=== PATIENT | female | born 1960 | race Caucasian/White ===

== ENCOUNTER 2018-09-15 22:45 | Inpatient (IN) ==
[2018-09-16] MEDS ORDERED: Artificial Tears SOLN 15 ML BOTTLE BOTH EYES PRN (01:52)
[2018-09-16] MEDS ORDERED: Naloxone 0.4 MG/ML INJ IVP PRN (01:52)
[2018-09-16] MEDS ORDERED: Vancomycin (wt based) 1,000 MG VIAL IVPB SCH (02:00)
[2018-09-16] MEDS ORDERED: 0.9 % Sodium Chloride 1,000 ML IVC SCH (02:00)
[2018-09-16] MEDS ORDERED: *HR* Heparin 5,000 UNIT/ML VIAL IVP PRN ×2 (02:04)
[2018-09-16] MEDS ORDERED: Heparin 25,000 UNIT/250 ML D5W 25,000 UNIT/250 ML IV.SOLN IVC SCH (02:15)
[2018-09-16 02:45] LABS: Basophils % 0.1 %; Hematocrit 35.4 % (35.3-44.9); Immature Granulocytes % 0.3 % (0-4); Lymphocytes # 0.6 K/mcL (0.6-4.6); Lymphocytes % 4.9 %; Mean Corpuscular HGB Conc 31.1 g/dL (31.6-35.5); Mean Corpuscular Hemoglobin 31.2 pg (28.0-33.3); Mean Corpuscular Volume 100.3 fL (83.0-100.0); Mean Platelet Volume 10.9 fL (9.4-12.4); Monocytes # 0.1 K/mcL (0.0-1.3); Monocytes % 1.1 %; Neutrophils # 10.9 K/mcL (1.6-8.9); Platelet Count 197 K/mcL (140-400); Red Blood Count 3.53 M/mcL (3.82-4.97); Red Cell Distribution Width 14.3 % (11.5-14.5); Segmented Neutrophils % 93.6 %
[2018-09-16 03:06] LABS: Alanine Aminotransferase 21 Units/L (7-52); Albumin 3.2 g/dL (3.5-5.7); Albumin/Globulin Ratio 1.1 (1.1-2.2); Alkaline Phosphatase 60 Units/L (34-104); Aspartate Amino Transferase 21 Units/L (13-39); BUN/Creatinine Ratio 17 (6-26); Bilirubin,Direct 0.4 mg/dL (0.0-0.2); Bilirubin,Indirect 0.9 mg/dL (0.0-1.2); Bilirubin,Total 1.3 mg/dL (0.3-1.0); Blood Urea Nitrogen 14 mg/dL (8-23); Calcium 7.8 mg/dL (8.6-10.3); Carbon Dioxide 18 mEq/L (23-29); Chloride 109 mEq/L (98-107); Globulin 2.9 g/dL (2.4-3.5); Glucose 198 mg/dL (70-105); Magnesium 1.9 mg/dL (1.6-2.6); Osmolality,Calculated 292 (280-300); Potassium 3.4 mEq/L (3.5-5.1); Sodium 138 mEq/L (136-145); Total Protein 6.1 g/dL (6.4-8.9); eGFR For Non-African Americans > 60 (> 60)
--- NOTE | 2018-09-16 03:29 | Internal Med History&Physical ---
Date of Encounter: 09/16/18 Time of Encounter: 01:20 Internal Medicine - H&P: HPI Chief complaint: difficulty breahting Admitted From: Hospital to Hospital Transfer Plans for Post Hospital Care: Home History of present illness: Ms. Navarro is a 58 year old female who presents in transfer from [facility]. She presented there earlier this evening with complaints of shortness of breath, ankle swelling, and chest tightness. Symptoms have been present off and on for roughly 2 months. However, her symptoms acutely worsened today. She initially was not in any significant respiratory distress. However, as her ER course continued, she became acutely dyspneic, unstable, and was exhibiting signs of impending respiratory failure/arrest. She was therefore intubated emergently in the ER and was mechanically ventilated. Given the above nature and onset of her respiratory distress, a CT angiogram of the chest was performed which revealed no acute pulmonary embolus. She did have some interstitial edema, however. At that point, a transfer request was made to send patient to our ICU for ongoing care. Upon arrival to the ICU, I saw patient at the bedside. She is sedated and mechanically ventilated. She is oxygenating well and her vital signs appear to be stable at this time. There are no family members present. All history is obtained from limited [facility] records and third-alliance party reports from [facility] ER staff. No further history could be obtained. Past Med Surg Social Fam HX - Past Medical History Source: other (limited [facility] records) Medical history: COPD, hypertension Additional medical history: NO FAMILY AT BEDSIDE, pt intubated and sedated upon arrival - Past Surgical History Surgical History: no surgical history - Social History Smoking Status: Former smoker Alcohol use: none Drug use: marijuana - Family History Mother History Unknown: Yes Father History Unknown: Yes Internal Medicine - H&P: Meds Allergy/AdvReac Type Severity Reaction Status Date / Time No Known Allergies Allergy Verified 09/16/18 03:37 ROS unobtainable: due to endotracheal tube - Constitutional Vitals: Temp Pulse Resp BP Pulse Ox 97.9 F 83 16 112/81 100 09/16/18 02:00 09/16/18 03:00 09/16/18 03:00 09/16/18 03:00 09/16/18 03:00 Exam: intubated, sedated, responds to painful/loud stimuli - Head Head exam: Present: atraumatic, normal inspection - Eye Eye exam: Present: PERRL. Absent: scleral icterus - ENT ENT exam: Present: mucous membranes dry, normal exam, normal oropharynx Additional comments: ETT/OG in place - Neck Neck exam general surgery: Present: full ROM, supple, trachea midline. Absent: lymphadenopathy, tenderness, nuchal rigidity, thyromegaly - Respiratory Respiratory exam: Present: rales (faint), rhonchi, wheezes (rare, scatterd). Absent: chest wall tenderness, tachypnea - Cardiovascular Cardiovascular exam: Present: distant heart sounds, RRR, +S1, +S2. Absent: diastolic murmur, systolic murmur Additional comments: + ectopic beats noted on occasion - GI/Abdominal GI/Abdominal exam: Present: normal bowel sounds, soft. Absent: hepatomegaly, mass, splenomegaly, tenderness - Extremities Exam Extremities exam: Present: full ROM, radial pulses palpable and symmetrical. Absent: calf tenderness, joint swelling, pedal edema, tenderness, warm (cool) - Back Exam Back exam: Absent: CVA tenderness (L), CVA tenderness (R) - Neurological Exam Additional comments: sedated, intubated, + purposeful movements with painful stimuli - Psychiatric Additional comments: unable to assess due to sedation - Skin Skin exam: Present: dry, intact, warm Internal Med - H&P Results - Labs CBC & Chem 7: 09/16/18 02:35 09/16/18 02:35 Labs: Short CBC 09/16/18 Range/Units 02:35 WBC 11.6 H (4.3-11.1) K/mcL Hgb 11.0 L (11.5-15.4) g/dL Hct 35.4 (35.3-44.9) % Plt Count 197 (140-400) K/mcL Neutrophils # 10.9 H (1.6-8.9) K/mcL BMP 09/16/18 02:35 Sodium 138 Potassium 3.4 L Chloride 109 H Carbon Dioxide 18 L BUN 14 Creatinine 0.84 Glucose 198 H Calcium 7.8 L Cardiac Enzymes 09/16/18 Range/Units 02:35 Troponin I 0.04 H* (< 0.04) ng/mL Liver Function 09/16/18 Range/Units 02:35 Total Bilirubin 1.3 H (0.3-1.0) mg/dL Direct Bilirubin 0.4 H (0.0-0.2) mg/dL AST 21 (13-39) Units/L ALT 21 (7-52) Units/L Alkaline Phosphatase 60 (34-104) Units/L Albumin 3.2 L (3.5-5.7) g/dL I reviewed the labs from [facility] and include the following: WBC 9.3 Hemoglobin 12.7 Hematocrit 39.1 Platelets 269 Sodium 143 Potassium 4.5 Chloride 106 Carbon dioxide 25 BUN 17 Glucose 110 Creatinine 1.15 Troponin 0.09 Initial lactate 3.3, follow-up lactate after fluid resuscitation was 1.9 - EKG Data -: EKG Interpreted by Myself - EKG Data Prior EKG available for review: no EKG comments: 09/16/18 04:05 [facility] EKG -- poor quality; baseline artifact; appears to show some lateral flipped T waves and ST changes with subtle ischemia - Impressions ITS Impressions Chest X-Ray 09/16/18 01:52 IMPRESSION: Endotracheal tube is been retracted and tip now lies 2.9 cm from the jerry. Enteric tube is been placed and can be seen to extend into the stomach, distal extent not included the field of view but with side-port visualized and present likely in the mid to proximal body of the stomach. No change in the heart or lungs with persistent bilateral pleural effusions along with some patchy airspace opacities which may relate to atelectasis or infiltrates. There also a persistent pulmonary vascular congestion and likely interstitial edema. D/ / Sukhjinder German MD / Sukhjinder German MD Interpreting Provider: Sukhjinder German MD - Diagnostic Studies Chest x-ray Status: image reviewed by me (ETT/OG in place; bilateral infiltrates) - Assessment and Plan (1) Acute hypoxemic respiratory failure Current Visit: Yes Status: Acute Assessment and plan: 1. Patient intubated at [facility]. 2. Will continue mechanical ventilation, wean oxygen as able, and check ABG. 3. Will consult Pulmonary for ICU management. 4. Antibiotics, steroids, and aerosols as detailed below. (2) Pneumonia Current Visit: Yes Status: Acute Assessment and plan: 1. Blood and sputum cultures ordered. 2. Will order Vancomycin, Zosyn, and Levaquin. 3. Will order systemic steroids for COPD as well. 4. Ventilatory support as above. 5. Will order Influenza testing. Qualifiers: Pneumonia type: due to unspecified organism Laterality: bilateral Lung location: lower lobe of lung Qualified Code(s): J18.1 - Lobar pneumonia, u nspecified organism (3) Sepsis Current Visit: Yes Status: Acute Assessment and plan: 1. Patient fluid resuscitated at [facility]. 2. Cultures as above. 3. Will trend lactate levels. 4. MIV and antibiotics as above. 5. Monitor hemodynamics and add pressors if necessary. Qualifiers: Sepsis type: sepsis due to unspecified organism Qualified Code(s): A41.9 - Sepsis, unspecified organism (4) Elevated troponin Current Visit: Yes Status: Acute Assessment and plan: 1. Will trend troponins and EKG's. 2. Will order ECHO and consult cardiology. 3. Will order daily ASA and continue ACS heparin gtt for now as initially started at [facility]. (5) DVT prophylaxis Current Visit: Yes Status: Acute Assessment and plan: 1. Heparin gtt as above. - Time Spent With Patient Total 53 minutes critical care time spent assessing patient, reviewing pertinent [facility] records and labs, and coordinating a treatment plan for patient.
[2018-09-16 04:30] LABS: INR 1.2; Prothrombin Time 13.5 Seconds (9.4-12.1)
[2018-09-16 04:35] LABS: ABG Base Excess -4 mEq/L (-2 to 3); ABG HCO3 22 mEq/L (21-27); ABG Oxygen Saturation 100 % (95-98); ABG PCO2 40 mmHg (35-45); ABG PH 7.34 pH Units (7.32-7.45); ABG PO2 206 mmHg (85-104); ABG TCO2 23 mEq/L (20-26); Blood Gas Modality ASSIST CONTROL; Blood Gas PEEP 5 cm H2O; Blood Gas Respiration Rate 16; Blood Gas VT 400 cc
[2018-09-16] MEDS: Artificial Tears SOLN 15 ML BOTTLE BOTH EYES SCH ×6 (04:57→23:24)
[2018-09-16] MEDS: FentaNYL (PF) 1,000 MCG in 0.9 % Sodium Chloride 80 ML IVC SCH ×3 (04:58→23:07)
[2018-09-16] MEDS: Pantoprazole 40 MG VIAL IVP SCH (05:02)
[2018-09-16 06:56] LABS: Influenza A PCR Negative (Negative); Influenza B PCR Negative (Negative); Resp. Syncytial Virus PCR Negative (Negative)
[2018-09-16] MEDS: methylPREDNISolone 125 MG/2 ML VIAL IVP SCH ×3 (09:16→23:16)
[2018-09-16] MEDS: Chlorhexidine Rinse 15 ML MOUTHWASH MM SCH ×2 (09:16→21:13)
[2018-09-16] MEDS: Piperacillin/Tazobactam 3.375 GM in 0.9 % Sodium Chloride Mini Bag 100 ML IVPB SCH ×3 (09:17→23:16)
[2018-09-16] MEDS: Levofloxacin 750 MG/150 ML 750 MG/150 ML BAG IVPB SCH (09:17)
[2018-09-16] MEDS: Aspirin 81 MG TAB.CHEW PO SCH (09:17)
[2018-09-16] MEDS: Budesonide/Formoterol 160/4.5 1 PUFF INH IH SCH ×2 (09:35→20:12)
[2018-09-16 10:42] LABS: Adenovirus Not Detected (Not Detect); Bordetella Pertussis Not Detected (Not Detect); Chlamydophila pneumoniae Not Detected (Not Detect); Coronavirus 229E Not Detected (Not Detect); Coronavirus HKU1 Not Detected (Not Detect); Coronavirus NL63 Not Detected (Not Detect); Coronavirus OC43 Not Detected (Not Detect); Human Metapneumovirus Not Detected (Not Detect); Human Rhinovirus/Enterovirus Not Detected (Not Detect); Influenza A Subtype 2009 H1 Not Detected (Not Detect); Influenza A Untypeable Not Detected (Not Detect); Influenza B Not Detected (Not Detect); Mycoplasma pneumoniae Not Detected (Not Detect); Parainfluenza Virus 1 Not Detected (Not Detect); Parainfluenza Virus 2 Not Detected (Not Detect); Parainfluenza Virus 3 Not Detected (Not Detect); Parainfluenza Virus 4 Not Detected (Not Detect); Respiratory Syncytial Virus Not Detected (Not Detect)
--- NOTE | 2018-09-16 10:48 | Pulmonology Consult Note ---
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 Patient presenting with a pedal edema slowly progressive shortness of breath over 2 months with current echocardiographic finding with pericardial effusion and systolic and diastolic heart failure will be due to underlying long-standing untreated hypertensive heart disease since she is a former smoker COPD is also complicating the picture. To continue mechanical ventilation with lung protective strategy patient has adequate gas exchange and ventilation (2) Cardiomyopathy Current Visit: Yes Status: Acute Patient newly diagnosed systolic and diastolic heart failure unsure the etiology of her cardiomyopathy can be ischemic versus nonischemic patient has this Pericardial effusion most likely due to this cardiomyopathy patient need to think about other polyserositis causes. Appreciate cardiology consult possible ischemic evaluation at some point of her hospital course. Qualifiers: Cardiomyopathy type: unspecified Qualified Code(s): I42.9 - Cardiomyopathy, unspecified (3) Pericardial effusion without cardiac tamponade Current Visit: Yes Status: Acute Patient is pericardial effusion spoke with the correctional treatment specialist who read the echocardiogram no evidence of cardiac And If She Gets into Hemodynamic Instability Will Need to Consult Cardiothoracic Surgery for Possible Pericardiocentesis. (4) Pneumonia Current Visit: Yes Status: Acute Patient chest x-ray imaging showing possible bilateral bibasilar pneumonia will cover with broad-spectrum antibiotics and will quickly de-escalate according to the clinical response. Qualifiers: Pneumonia type: due to unspecified organism Laterality: bilateral Lung location: lower lobe of lung Qualified Code(s): J18.1 - Lobar pneumonia, unspecified organism (5) COPD (chronic obstructive pulmonary disease) Current Visit: Yes Status: Acute To continue schedule bronchodilators. Qualifiers: COPD type: unspecified COPD Qualified Code(s): J44.9 - Chronic obstructive pulmonary disease, unspecified History of Present Illness Consult date: 09/16/18 Requesting physician: Ian Oliver Reason for consult: other (acute respiratory failure ) Chief complaint: Shortness of breadt History of present illness: 58-year-old female with not much past medical history according to records reviewed the family was not at bedside patient looks commands she did not with chronic smoking history patient might have some underlying COPD according to records from [facility] patient was complaining of progressive shortness of breath which was going for few months has pedal edema developed worsening acute hypoxic respiratory failure patient was intubated and mechanically ventilated at [facility] ER and patient was transferred to [facility] for further management. All the history was taken from the medical records as there is no family. Patient was agitated before I went into the room the nursing staff has to sedate her. Past Med Surg Social Fam HX - Past Medical History Medical history: COPD, hypertension Additional medical history: NO FAMILY AT BEDSIDE, pt intubated and sedated upon arrival - Past Surgical History Surgical History: no surgical history - Social History Smoking Status: Former smoker Alcohol use: none Drug use: marijuana - Family History Mother History Unknown: Yes Father History Unknown: Yes Medications and Allergies Albuterol Sulfate [Ventolin Hfa] 2 puff IH Q6H PRN 09/16/18 [History] Fluticasone/Salmeterol [Airduo Respiclick 113-14 Mcg] 1 puff IH BID 09/16/18 [History] Fluticasone/Vilanterol [Breo Ellipta 100-25 Mcg INH] 1 puff IH DAILY 09/16/18 [History] Allergy/AdvReac Type Severity Reaction Status Date / Time No Known Allergies Allergy Verified 09/16/18 11:25 ROS unobtainable: due to endotracheal tube All Systems: The remainder of the systems were reviewed and are negative Physical Examination Vital Signs: Vital Signs, Last 4 Hours Temp Pulse Resp BP Pulse Ox 09/16/18 10:00 66 16 101/79 99 09/16/18 09:38 24 100/82 99 09/16/18 09:32 86 09/16/18 09:00 65 16 104/83 100 09/16/18 08:00 97.8 F 68 16 108/75 99 09/16/18 07:20 16 114/87 100 09/16/18 07:00 67 16 114/87 99 Auscultation: bilateral: diminished breath sounds Cardiovascular: irregular rhythm Gait: other (unable to assess ) unable to assess due to mental status other (unable to assess) Ventilator Settings Ventilator Settings: Ventilator Settings, Last 8 Hours Ventilator Tidal Volume 400 Setting Ventilator Tidal Volume 400 Setting Ventilator Tidal Volume 400 Setting Ventilator Tidal Volume 400 Setting Ventilator Tidal Volume 400 Setting Ventilator Tidal Volume 400 Setting Ventilator Tidal Volume 414 Setting Ventilator Tidal Volume 400 Setting Ventilator Tidal Volume 414 Setting Ventilator Tidal Volume 400 Setting Ventilator Tidal Volume 414 Setting Ventilator Tidal Volume 400 Setting Ventilator Tidal Volume 400 Setting Ventilator Respiratory Rate 16 Setting Ventilator Respiratory Rate 16 Setting Ventilator Respiratory Rate 16 Setting Ventilator Respiratory Rate 16 Setting Ventilator Respiratory Rate 16 Setting Ventilator Respiratory Rate 16 Setting Ventilator Respiratory Rate 16 Setting Ventilator Respiratory Rate 16 Setting Ventilator Respiratory Rate 16 Setting Ventilator Respiratory Rate 16 Setting Ventilator Respiratory Rate 16 Setting Ventilator Respiratory Rate 16 Setting Ventilator Respiratory Rate 16 Setting Actual Respiratory Rate 16 Actual Respiratory Rate 16 Actual Respiratory Rate 16 Actual Respiratory Rate 16 Actual Respiratory Rate 16 Actual Respiratory Rate 16 Actual Respiratory Rate 16 Actual Respiratory Rate 16 Actual Respiratory Rate 16 Actual Respiratory Rate 18 Actual Respiratory Rate 16 Actual Respiratory Rate 16 Positive End Expiratory 5 Pressure Positive End Expiratory 5 Pressure Positive End Expiratory 5 Pressure Positive End Expiratory 5 Pressure Positive End Expiratory 5 Pressure Positive End Expiratory 5 Pressure Positive End Expiratory 5 Pressure Positive End Expiratory 5 Pressure Positive End Expiratory 5 Pressure Positive End Expiratory 5 Pressure Positive End Expiratory 5 Pressure Positive End Expiratory 5 Pressure Positive End Expiratory 5 Pressure Peak Inspiratory Airway 18 Pressure Peak Inspiratory Airway 18 Pressure Peak Inspiratory Airway 20 Pressure Peak Inspiratory Airway 20 Pressure Peak Inspiratory Airway 22 Pressure Peak Inspiratory Airway 22 Pressure Peak Inspiratory Airway 22 Pressure Peak Inspiratory Airway 22 Pressure Peak Inspiratory Airway 23 Pressure Peak Inspiratory Airway 25 Pressure Peak Inspiratory Airway 22 Pressure Peak Inspiratory Airway 22 Pressure Results - Laboratory Findings CBC and BMP: 09/16/18 02:35 09/16/18 02:35 ABG ABG pH 7.34 pH Units (7.32-7.45) 09/16/18 04:28 ABG pCO2 40 mmHg (35-45) 09/16/18 04:28 ABG pO2 206 mmHg (85-104) H 09/16/18 04:28 ABG O2 Saturation 100 % (95-98) H 09/16/18 04:28 PT/INR, D-dimer PT 13.5 Seconds (9.4-12.1) H 09/16/18 02:29 Abnormal lab findings: Abnormal lab results WBC 11.6 K/mcL (4.3-11.1) H 09/16/18 02:35 RBC 3.53 M/mcL (3.82-4.97) L 09/16/18 02:35 Hgb 11.0 g/dL (11.5-15.4) L 09/16/18 02:35 MCV 100.3 fL (83.0-100.0) H 09/16/18 02:35 MCHC 31.1 g/dL (31.6-35.5) L 09/16/18 02:35 Neutrophils # 10.9 K/mcL (1.6-8.9) H 09/16/18 02:35 PT 13.5 Seconds (9.4-12.1) H 09/16/18 02:29 Heparin Anti-Xa, Unfract 0.03 IU/mL (0.30-0.70) L 09/16/18 05:25 ABG pO2 206 mmHg (85-104) H 09/16/18 04:28 ABG O2 Saturation 100 % (95-98) H 09/16/18 04:28 ABG Base Excess -4 mEq/L (-2 to 3) L 09/16/18 04:28 Potassium 3.4 mEq/L (3.5-5.1) L 09/16/18 02:35 Chloride 109 mEq/L (98-107) H 09/16/18 02:35 Carbon Dioxide 18 mEq/L (23-29) L 09/16/18 02:35 Glucose 198 mg/dL (70-105) H 09/16/18 02:35 POC Glucose 160 mg/dL (70-99) H 09/16/18 05:02 Calcium 7.8 mg/dL (8.6-10.3) L 09/16/18 02:35 Total Bilirubin 1.3 mg/dL (0.3-1.0) H 09/16/18 02:35 Direct Bilirubin 0.4 mg/dL (0.0-0.2) H 09/16/18 02:35 Troponin I 0.05 ng/mL (< 0.04) H* 09/16/18 05:25 Serum Total Protein 6.1 g/dL (6.4-8.9) L 09/16/18 02:35 Albumin 3.2 g/dL (3.5-5.7) L 09/16/18 02:35 - Clinical Findings Intake & Output: Intake & Output 09/15/18 09/16/18 09/16/18 23:59 07:59 15:59 Intake Total 269.6 / 269.6 505.4 / 505.4 Output Total 895 / 895 Balance -625.4 / -625.4 505.4 / 505.4 Weight 49.7 kg Consult Discharge Plan - Plan Referrals: NONE,PCP [Primary Care Provider] - Critical Care Time Critical Care Time: Yes Total Critical Care Time: 45 Attestation: I spent 45 minutes of Critical Care time with this patient. It involved dec ision making of high complexity to assess, manipulate, and support vital organ system failure and/or to prevent further life threatening deterioration of the patient's condition. The time involved in the performance of separately reportable procedures was not counted toward critical care time.
[2018-09-16] MEDS: Dexmedetomidine HCl 400 MCG/100 ML MLS IVC SCH ×2 (15:22→23:23)
[2018-09-16] MEDS ORDERED: *HR* Midazolam HCl 2 MG/2 ML VIAL ONE (16:09)
[2018-09-16] MEDS: *HR* Midazolam HCl 2 MG/2 ML VIAL IVP PRN ×2 (16:11→23:06)
--- NOTE | 2018-09-16 17:33 | Cardiology Consult Note ---
Date of Encounter: 09/16/18 Time of Encounter: 17:28 Assessment and Plan (1) Elevated troponin Current Visit: Yes Status: Acute Minimal troponin elevation, flat, due to demand ischemia, (2) Acute hypoxemic respiratory failure Current Visit: Yes Status: Acute Acute respiratory failure, unclear etiology, appreciate pulmonary evaluation and ICU team efforts. (3) Pericardial effusion without cardiac tamponade Current Visit: Yes Status: Acute Pericardial effusion, no tamponade, unclear etiology, will continue to monitor (4) Cardiomyopathy Current Visit: Yes Status: Acute Significant LV systolic impairment, EF 30 - 35%, unclear etiology, will need ischemic eval when respiratory status improves. Qualifiers: Cardiomyopathy type: unspecified Qualified Code(s): I42.9 - Cardiomyopathy, unspecified Discussion w patient/family: The assessment and plan as outlined above was discussed with the patient and/or family members who expressed understanding and agreement. All questions were answered. Thank you for involving us in the care of your patient. Please call with any questions. History of Present Illness Consult date: 09/16/18 Requesting physician: Jose Schmidt Consult reason: Chest tightness Chief complaint: Chest tigntness History of present illness: Ms. Navarro is a 58 year old female who presented to the [facility] for evaluation of shortness of breath, ankle swelling, and chest tightness, reporting symptoms on and off over last two months. Pt developed acute shortness of breath, respiratory failure, was urgently intubated and sedated. Pt has no previous cardiac history that can be determined. She is intubated and sedated, hx obtained from old records. Past Med Surg Social Fam HX - Past Medical History Medical history: COPD, hypertension Additional medical history: NO FAMILY AT BEDSIDE, pt intubated and sedated upon arrival - Past Surgical History Surgical History: no surgical history - Social History Smoking Status: Former smoker Alcohol use: none Drug use: marijuana - Family History Mother History Unknown: Yes Father History Unknown: Yes Medications and Allergies Albuterol Sulfate [Ventolin Hfa] 2 puff IH Q6H PRN 09/16/18 [History] Fluticasone/Salmeterol [Airduo Respiclick 113-14 Mcg] 1 puff IH BID 09/16/18 [History] Fluticasone/Vilanterol [Breo Ellipta 100-25 Mcg INH] 1 puff IH DAILY 09/16/18 [History] Allergy/AdvReac Type Severity Reaction Status Date / Time No Known Allergies Allergy Verified 09/16/18 11:25 ROS unobtainable: due to endotracheal tube All Systems Review: The remainder of the systems were reviewed and are negative Physical Examination Vital Signs, Last 4 Hours Temp Pulse Resp BP Pulse Ox 09/16/18 17:22 16 113/91 98 09/16/18 16:07 97.5 F L 09/16/18 16:00 97.5 F L 81 16 128/92 96 09/16/18 15:24 16 109/93 98 09/16/18 15:00 78 16 109/93 99 09/16/18 14:00 68 16 105/89 99 General: Other (Pt is sedated and intubated) HEENT: Atraumatic, Normocephaly, Mucus Membranes Moist Neck: No JVD Cardiac: Reg Rate and Rhythm Lungs: Other (PT is intubated, scattered rhonchi) Neuro: Other (sedated) Abdomen: Soft Skin: No rashes noted on visualized skin Extremities: No Clubbing, No Edema Results 09/16/18 02:35 09/16/18 02:35 Lab Results 09/16/18 09/16/18 09/16/18 02:29 02:35 02:35 WBC 11.6 H Hgb 11.0 L Hct 35.4 Plt Count 197 INR 1.2 Sodium 138 Potassium 3.4 L Chloride 109 H Carbon Dioxide 18 L BUN 14 Creatinine 0.84 Glucose 198 H Calcium 7.8 L Magnesium 1.9 Total Bilirubin 1.3 H AST 21 ALT 21 Alkaline Phosphatase 60 Troponin I 09/16/18 09/16/18 09/16/18 02:35 05:25 10:18 WBC Hgb Hct Plt Count INR Sodium Potassium Chloride Carbon Dioxide BUN Creatinine Glucose Calcium Magnesium Total Bilirubin AST ALT Alkaline Phosphatase Troponin I 0.04 H* 0.05 H* 0.04 H* Consult Discharge Plan - Plan Referrals: NONE,PCP [Primary Care Provider] -
[2018-09-16] MEDS ORDERED: Aminoglycoside Consult 1 EACH MC ONE (19:09)
[2018-09-17] MEDS: Artificial Tears SOLN 15 ML BOTTLE BOTH EYES SCH ×6 (04:30→23:38)
[2018-09-17 04:33] LABS: ABG Base Excess -4 mEq/L (-2 to 3); ABG HCO3 21 mEq/L (21-27); ABG Oxygen Saturation 96 % (95-98); ABG PCO2 34 mmHg (35-45); ABG PO2 80 mmHg (85-104); ABG TCO2 22 mEq/L (20-26); Blood Gas Modality ASSIST CONTROL; Blood Gas PEEP 5 cm H2O; Blood Gas Respiration Rate 16; Blood Gas VT 400 cc
[2018-09-17] MEDS: Pantoprazole 40 MG VIAL IVP SCH (05:45)
[2018-09-17 06:01] LABS: Basophils % 0.1 %; Hematocrit 37.3 % (35.3-44.9); Immature Granulocytes % 0.5 % (0-4); Lymphocytes % 9.2 %; Mean Corpuscular HGB Conc 32.2 g/dL (31.6-35.5); Mean Corpuscular Hemoglobin 30.9 pg (28.0-33.3); Mean Corpuscular Volume 96.1 fL (83.0-100.0); Mean Platelet Volume 11.1 fL (9.4-12.4); Monocytes # 0.2 K/mcL (0.0-1.3); Monocytes % 1.8 %; Neutrophils # 9.7 K/mcL (1.6-8.9); Platelet Count 184 K/mcL (140-400); Red Blood Count 3.88 M/mcL (3.82-4.97); Red Cell Distribution Width 14.3 % (11.5-14.5); Segmented Neutrophils % 88.4 %
[2018-09-17 06:21] LABS: BUN/Creatinine Ratio 28 (6-26); Blood Urea Nitrogen 23 mg/dL (8-23); Calcium 8.8 mg/dL (8.6-10.3); Carbon Dioxide 20 mEq/L (23-29); Chloride 110 mEq/L (98-107); Glucose 171 mg/dL (70-105); Osmolality,Calculated 296 (280-300); Potassium 3.7 mEq/L (3.5-5.1); Sodium 139 mEq/L (136-145); eGFR For Non-African Americans > 60 (> 60)
[2018-09-17] MEDS: Budesonide/Formoterol 160/4.5 1 PUFF INH IH SCH ×2 (07:17→19:44)
[2018-09-17] MEDS: Chlorhexidine Rinse 15 ML MOUTHWASH MM SCH ×2 (09:05→20:17)
[2018-09-17] MEDS: Piperacillin/Tazobactam 3.375 GM in 0.9 % Sodium Chloride Mini Bag 100 ML IVPB SCH (09:16)
[2018-09-17] MEDS: methylPREDNISolone 125 MG/2 ML VIAL IVP SCH (09:16)
[2018-09-17] MEDS: Levofloxacin 750 MG/150 ML 750 MG/150 ML BAG IVPB SCH (09:18)
[2018-09-17] MEDS ORDERED: Dextrose Gel 15 GM/37.5 ML TUBE PO PRN ×2 (11:12)
[2018-09-17] MEDS ORDERED: *HR* Dextrose 50 % in Water (Syg) 50 ML SYRINGE IVP PRN (11:12)
[2018-09-17] MEDS ORDERED: D5% in Water 1,000 ML IVC PRN (11:12)
--- NOTE | 2018-09-17 11:37 | Pulmonology Progress Note ---
Date of Encounter: 09/17/18 Time of Encounter: 09:00 Assessment and Plan (1) Acute hypoxemic respiratory failure Current Visit: Yes Status: Acute Most likely secondary to new onset systolic heart failure with some pericardial effusion and some bilateral pleural effusion. Picture can be complicated by worsening of underlying COPD. Patient is doing well on the CPAP trial will try to extubate today (2) Cardiomyopathy Current Visit: Yes Status: Acute Looks like patient might have ischemic cardiomyopathy looks like she has . a new onset systolic heart failure with some pericardial effusion patient will need a cardiac catheterization at some point during the hospital stay. Card iology following. Qualifiers: Cardiomyopathy type: unspecified Qualified Code(s): I42.9 - Cardiomyopathy, unspecified (3) Pericardial effusion without cardiac tamponade Current Visit: Yes Status: Acute Patient is hemodynamically stable with pericardial effusion echocardiogram did not show any evidence of cardiac tamponade. (4) Pneumonia Current Visit: Yes Status: Acute To de-escalate the broad-spectrum antibiotics according to clinical response. Qualifiers: Pneumonia type: due to unspecified organism Laterality: bilateral Lung location: lower lobe of lung Qualified Code(s): J18.1 - Lobar pneumonia, unspecified organism (5) COPD (chronic obstructive pulmonary disease) Current Visit: Yes Status: Acute Patient will need formal evaluation of COPD as an outpatient. Qualifiers: COPD type: unspecified COPD Qualified Code(s): J44.9 - Chronic obstructive pulmonary disease, unspecified (6) DVT prophylaxis Current Visit: Yes Status: Acute To continue heparin. Subjective Principal diagnosis: Acute hypoxic hypercarbic respiratory failure secondary to acute systolic h Objective PUL Vital signs: Last Vital Signs Temp 97.1 F L 09/17/18 08:43 Pulse 72 09/17/18 09:00 Resp 23 09/17/18 09:00 BP 118/94 09/17/18 09:00 Pulse Ox 96 09/17/18 09:00 Auscultation: bilateral: clear Cardiovascular: regular rate and rhythm normal mental status, pupils equal and round, other (Patient is conscious oriented x 3 .) other Ventilator Settings Ventilator Settings: Ventilator Settings, Last 8 Hours Ventilator Tidal Volume 400 Setting Ventilator Tidal Volume 400 Setting Ventilator Tidal Volume 400 Setting Ventilator Tidal Volume 400 Setting Ventilator Tidal Volume 400 Setting Ventilator Tidal Volume 400 Setting Ventilator Tidal Volume 400 Setting Ventilator Tidal Volume 400 Setting Ventilator Respiratory Rate 16 Setting Ventilator Respiratory Rate 16 Setting Ventilator Respiratory Rate 16 Setting Ventilator Respiratory Rate 16 Setting Ventilator Respiratory Rate 16 Setting Ventilator Respiratory Rate 16 Setting Ventilator Respiratory Rate 16 Setting Ventilator Respiratory Rate 16 Setting Actual Respiratory Rate 20 Actual Respiratory Rate 16 Actual Respiratory Rate 20 Actual Respiratory Rate 20 Actual Respiratory Rate 16 Actual Respiratory Rate 16 Actual Respiratory Rate 16 Actual Respiratory Rate 16 Positive End Expiratory 5 Pressure Positive End Expiratory 5 Pressure Positive End Expiratory 5 Pressure Positive End Expiratory 5 Pressure Positive End Expiratory 5 Pressure Positive End Expiratory 5 Pressure Positive End Expiratory 5 Pressure Positive End Expiratory 5 Pressure Positive End Expiratory 5 Pressure Peak Inspiratory Airway 21 Pressure Peak Inspiratory Airway 10 Pressure Peak Inspiratory Airway 21 Pressure Peak Inspiratory Airway 21 Pressure Peak Inspiratory Airway 21 Pressure Peak Inspiratory Airway 21 Pressure Peak Inspiratory Airway 21 Pressure Peak Inspiratory Airway 22 Pressure Results - Laboratory Findings CBC and BMP: 09/17/18 05:40 09/17/18 05:40 ABG ABG pH 7.40 pH Units (7.32-7.45) 09/17/18 04:30 ABG pCO2 34 mmHg (35-45) L 09/17/18 04:30 ABG pO2 80 mmHg (85-104) L 09/17/18 04:30 ABG O2 Saturation 96 % (95-98) 09/17/18 04:30 PT/INR, D-dimer PT 13.5 Seconds (9.4-12.1) H 09/16/18 02:29 Abnormal lab findings: Abnormal lab results Neutrophils # 9.7 K/mcL (1.6-8.9) H 09/17/18 05:40 PT 13.5 Seconds (9.4-12.1) H 09/16/18 02:29 Heparin Anti-Xa, Unfract 0.03 IU/mL (0.30-0.70) L 09/16/18 05:25 ABG pCO2 34 mmHg (35-45) L 09/17/18 04:30 ABG pO2 80 mmHg (85-104) L 09/17/18 04:30 ABG Base Excess -4 mEq/L (-2 to 3) L 09/17/18 04:30 Chloride 110 mEq/L (98-107) H 09/17/18 05:40 Carbon Dioxide 20 mEq/L (23-29) L 09/17/18 05:40 BUN/Creatinine Ratio 28 (6-26) H 09/17/18 05:40 Glucose 171 mg/dL (70-105) H 09/17/18 05:40 POC Glucose 142 mg/dL (70-99) H 09/17/18 11:13 Total Bilirubin 1.3 mg/dL (0.3-1.0) H 09/16/18 02:35 Direct Bilirubin 0.4 mg/dL (0.0-0.2) H 09/16/18 02:35 Troponin I 0.04 ng/mL (< 0.04) H* 09/16/18 10:18 Serum Total Protein 6.1 g/dL (6.4-8.9) L 09/16/18 02:35 Albumin 3.2 g/dL (3.5-5.7) L 09/16/18 02:35 - Clinical Findings Intake & Output: Intake & Output 09/16/18 09/17/18 09/17/18 23:59 07:59 15:59 Intake Total 298 / 298 242.8 / 242.8 Output Total 125 / 125 50 / 50 Balance 173 / 173 217.8 / 217.8 -50 / -50 Weight 48.1 kg Consult Discharge Plan - Plan Referrals: NONE,PCP [Primary Care Provider] - Critical Care Time Critical Care Time: Yes Total Critical Care Time: 40 Attestation: I spent 40 minutes of Critical Care time with this patient. It involved decision making of high complexity to assess, manipulate, and support vital organ system failure and/or to prevent further life threatening deterioration of the patient's condition. The time involved in the performance of separately reportable procedures was not counted toward critical care time.
[2018-09-17] MEDS: Insulin LISPRO 300 UNITS/3 ML VIAL SQ SCH ×2 (11:49→17:26)
[2018-09-17] MEDS: Aspirin 81 MG TAB.CHEW PO SCH (11:49)
[2018-09-17] MEDS: Metoprolol XL (24 HR) Succ 25 MG TAB.ER.24H PO SCH (13:55)
[2018-09-17] MEDS: Furosemide 20 MG/2 ML VIAL IVP SCH ×2 (13:56→17:20)
--- NOTE | 2018-09-17 14:17 | Cardiology Progress Note ---
Date of Encounter: 09/17/18 Time of Encounter: 14:15 Assessment and Plan (1) Acute hypoxemic respiratory failure Current Visit: Yes Status: Acute Acute respiratory failure in the setting of PNA and CHF. Initially intubated and now on bipap. Pulmonology following. Start IV lasix for diuresis. (2) Pericardial effusion without cardiac tamponade Current Visit: Yes Status: Acute Pericardial effusion, no tamponade, unclear etiology, will continue to monitor. Check re-peat TTE in 2 weeks. (3) Cardiomyopathy Current Visit: Yes Status: Acute Acute HFrEF. Significant LV systolic impairment, EF 30 - 35%, unclear etiology. No prior cardiac work-up. Ischemic evaluation when respiratory status improves. Start low dose bb. Mild fluid overload on exam. CXR showed persistent bilateral pleural effusions along with some patchy airspace opacities which may relate to atelectasis or infiltrates. There is also some persistent pulmonary vascular congestion and likely interstitial edema. Start IV lasix and oral toprol xl. Consider aceI if b/p allows. Strict I&O and daily weights. Low sodium diet. [facility] recommended to evaluate for ischemic cause once able from respiratory standpoint. Qualifiers: Cardiomyopathy type: unspecified Qualified Code(s): I42.9 - Cardiomyopathy, unspecified Discussion w patient/family: The assessment and plan as outlined above was discussed with the patient and/or family members who expressed understanding and agreement. All questions were answered. Thank you for involving us in the care of your patient. Please call with any questions. Subjective Principal diagnosis: Acute hypoxic hypercarbic respiratory failure secondary to acute systolic h Interval history: Ms. Navarro is currently on bipap. Denies chest pain. States she is anxious to go home. Objective Vital Signs, Last 4 Hours Temp Pulse Resp BP Pulse Ox 09/17/18 14:00 80 18 100/81 98 09/17/18 13:00 76 18 97/85 97 09/17/18 12:21 97.3 F L 09/17/18 11:00 77 20 110/90 97 General: Conversant, No Apparent Distress, Other (appears anxious) HEENT: Atraumatic, Normocephaly, Mucus Membranes Moist Neck: No JVD, Normal carotid pulses Cardiac: Reg Rate and Rhythm, Normal S1 and S2, No Murmur Lungs: Other (respirations labored with conversation. On bipap) Neuro: Alert and responsive, No focal deficits noted Abdomen: Soft, Non-Tender Skin: No rashes noted on visualized skin Musculoskeletal: No Chest Wall Tenderness Extremities: No Clubbing, No Cyanosis, Normal Pulses, Other (ankle edema noted.) Results 09/17/18 05:40 09/17/18 05:40 Lab Results 09/17/18 03 05:40 05:40 WBC 11.0 Hgb 12.0 Hct 37.3 Plt Count 184 Sodium 139 Potassium 3.7 Chloride 110 H Carbon Dioxide 20 L BUN 23 Creatinine 0.81 Glucose 171 H Calcium 8.8 - Imaging and Cardiology Echo: report reviewed - EKG Interpretation EKG results cardiology: personally reviewed Consult Discharge Plan - Plan Referrals: NONE,PCP [Primary Care Provider] -
[2018-09-17] MEDS: *HR* Heparin 5,000 UNIT/ML VIAL SQ SCH (17:26)
[2018-09-17] MEDS: MethylPREDNISolone 40 MG/ML VIAL IVP SCH ×2 (17:30→23:43)
[2018-09-17] MEDS ORDERED: Insulin LISPRO 300 UNITS/3 ML VIAL SQ SCH (21:00)
[2018-09-17] MEDS: Acetaminophen 325 MG TABLET PO PRN (23:43)
[2018-09-18] MEDS: *HR* Heparin 5,000 UNIT/ML VIAL SQ SCH ×2 (04:31→17:37)
[2018-09-18] MEDS: Pantoprazole 40 MG VIAL IVP SCH (04:38)
[2018-09-18 05:34] LABS: Hematocrit 35.1 % (35.3-44.9); Hemoglobin 11.5 g/dL (11.5-15.4); Mean Corpuscular HGB Conc 32.8 g/dL (31.6-35.5); Mean Corpuscular Volume 94.6 fL (83.0-100.0); Mean Platelet Volume 11.5 fL (9.4-12.4); Platelet Count 203 K/mcL (140-400); Red Blood Count 3.71 M/mcL (3.82-4.97); Red Cell Distribution Width 14.6 % (11.5-14.5)
[2018-09-18] MEDS ORDERED: *HR* Metoprolol 5 MG/5 ML VIAL IVP ONE ×2 (05:43→12:39)
[2018-09-18 05:50] LABS: BUN/Creatinine Ratio 31 (6-26); Blood Urea Nitrogen 29 mg/dL (8-23); Calcium 8.9 mg/dL (8.6-10.3); Carbon Dioxide 23 mEq/L (23-29); Chloride 107 mEq/L (98-107); Glucose 140 mg/dL (70-105); Osmolality,Calculated 292 (280-300); Potassium 3.5 mEq/L (3.5-5.1); Sodium 137 mEq/L (136-145); eGFR For Non-African Americans > 60 (> 60)
[2018-09-18] MEDS: Metoprolol XL (24 HR) Succ 25 MG TAB.ER.24H PO SCH (08:50)
[2018-09-18] MEDS: Acetaminophen 325 MG TABLET PO PRN (08:50)
[2018-09-18] MEDS: Aspirin 81 MG TAB.CHEW PO SCH (08:50)
[2018-09-18] MEDS: Furosemide 20 MG/2 ML VIAL IVP SCH (08:51)
[2018-09-18] MEDS: Levofloxacin 750 MG/150 ML 750 MG/150 ML BAG IVPB SCH (08:51)
--- NOTE | 2018-09-18 09:03 | Pulmonology Progress Note ---
Date of Encounter: 09/18/18 Time of Encounter: 08:00 Assessment and Plan (1) Acute hypoxemic respiratory failure Current Visit: Yes Status: Acute Most likely secondary to new onset systolic heart failure with some pericardial effusion and some bilateral pleural effusion. Picture can be complicated by worsening of underlying COPD. Patient is doing well on the CPAP trial will try to extubate today 09/18 patient with new onset acute systolic heart failure complicated by underlying COPD never got evaluated in the past patient was extubated yesterday tolerated the BiPAP doing well on nasal cannula. Patient can be transferred to second floor telemetry. (2) Cardiomyopathy Current Visit: Yes Status: Acute Looks like patient might have ischemic cardiomyopathy looks like she has . a new onset systolic heart failure with some pericardial effusion patient will need a cardiac catheterization at some point during the hospital stay. Cardiology following. 09/18 cardiology is not going to do cardiac catheterization up titration of Toprol-XL, starting lisinopril 2.5 mg there is room to titrate upwards because of severe systolic heart failure on top of that increase afterload patient will need adequate blood pressure control optimizing treatment regimen before discharge. Qualifiers: Cardiomyopathy type: unspecified Qualified Code(s): I42.9 - Cardiomyopathy, unspecified (3) Pericardial effusion without cardiac tamponade Current Visit: Yes Status: Acute Patient is hemodynamically stable with pericardial effusion echocardiogram did not show any evidence of cardiac tamponade. (4) Pneumonia Current Visit: Yes Status: Acute To de-escalate the broad-spectrum antibiotics Qualifiers: Pneumonia type: due to unspecified organism Laterality: bilateral Lung location: lower lobe of lung Qualified Code(s): J18.1 - Lobar pneumonia, unspecified organism (5) COPD (chronic obstructive pulmonary disease) Current Visit: Yes Status: Acute Patient will need formal evaluation of COPD as an outpatient. Sent home on albuterol nebulizer. We will arrange outpatient follow-up with [facility]. Qualifiers: COPD type: unspecified COPD Qualified Code(s): J44.9 - Chronic obstructive pulmonary disease, unspecified (6) Sepsis Current Visit: Yes Status: Resolved sepsis resolved with fluid resuscitation and antibiotics. Qualifiers: Sepsis type: sepsis due to unspecified organism Qualified Code(s): A41.9 - Sepsis, unspecified organism (7) DVT prophylaxis Current Visit: Yes Status: Acute To continue heparin. Subjective Principal diagnosis: Acute hypoxic hypercarbic respiratory failure secondary to acute systolic h Interval history: Patient was extubated yesterday today tolerated BiPAP well patient has give onset systolic heart failure with underlying COPD no evidence of pneumonia patient is doing well she is eating and drinking. Objective PUL Vital signs: Last Vital Signs Temp 98.2 F 09/18/18 03:00 Pulse 100 09/18/18 06:00 Resp 22 09/18/18 06:00 BP 139/105 09/18/18 06:00 Pulse Ox 96 09/18/18 06:00 Auscultation: bilateral: rales Extremities: edema Gait: other normal mental status, non-focal exam Results - Laboratory Findings CBC and BMP: 09/18/18 04:45 09/18/18 04:45 ABG ABG pH 7.40 pH Units (7.32-7.45) 09/17/18 04:30 ABG pCO2 34 mmHg (35-45) L 09/17/18 04:30 ABG pO2 80 mmHg (85-104) L 09/17/18 04:30 ABG O2 Saturation 96 % (95-98) 09/17/18 04:30 PT/INR, D-dimer PT 13.5 Seconds (9.4-12.1) H 09/16/18 02:29 Abnormal lab findings: Abnormal lab results WBC 17.3 K/mcL (4.3-11.1) H D 09/18/18 04:45 RBC 3.71 M/mcL (3.82-4.97) L 09/18/18 04:45 Hct 35.1 % (35.3-44.9) L 09/18/18 04:45 RDW 14.6 % (11.5-14.5) H 09/18/18 04:45 Neutrophils # 9.7 K/mcL (1.6-8.9) H 09/17/18 05:40 PT 13.5 Seconds (9.4-12.1) H 09/16/18 02:29 Heparin Anti-Xa, Unfract 0.03 IU/mL (0.30-0.70) L 09/16/18 05:25 ABG pCO2 34 mmHg (35-45) L 09/17/18 04:30 ABG pO2 80 mmHg (85-104) L 09/17/18 04:30 ABG Base Excess -4 mEq/L (-2 to 3) L 09/17/18 04:30 BUN 29 mg/dL (8-23) H 09/18/18 04:45 BUN/Creatinine Ratio 31 (6-26) H 09/18/18 04:45 Glucose 140 mg/dL (70-105) H 09/18/18 04:45 POC Glucose 160 mg/dL (70-99) H 09/18/18 08:34 Total Bilirubin 1.3 mg/dL (0.3-1.0) H 09/16/18 02:35 Direct Bilirubin 0.4 mg/dL (0.0-0.2) H 09/16/18 02:35 Troponin I 0.04 ng/mL (< 0.04) H* 09/16/18 10:18 Serum Total Protein 6.1 g/dL (6.4-8.9) L 09/16/18 02:35 Albumin 3.2 g/dL (3.5-5.7) L 09/16/18 02:35 - Clinical Findings Intake & Output: Intake & Output 09/17/18 09/18/18 09/18/18 23:59 07:59 15:59 Intake Total 100 / 100 Output Total 1125 / 1125 500 / 500 250 / 250 Balance -1025 / -1025 -500 / -500 -250 / -250 Weight 52.5 kg Consult Discharge Plan - Plan Referrals: NONE,PCP [Primary Care Provider] -
[2018-09-18] MEDS: MethylPREDNISolone 40 MG/ML VIAL IVP SCH ×3 (09:04→23:35)
[2018-09-18] MEDS: Insulin LISPRO 300 UNITS/3 ML VIAL SQ SCH ×3 (09:05→17:36)
[2018-09-18] MEDS: Budesonide/Formoterol 160/4.5 1 PUFF INH IH SCH ×2 (11:14→22:57)
[2018-09-18] MEDS ORDERED: *HR* Metoprolol 5 MG/5 ML VIAL IVP PRN ×2 (12:41→15:09)
--- NOTE | 2018-09-18 13:51 | Cardiology Progress Note ---
Date of Encounter: 09/18/18 Time of Encounter: 09:30 Assessment and Plan (1) Cardiomyopathy Current Visit: Yes Status: Acute Acute HFrEF. Significant LV systolic impairment, EF 30 - 35%, unclear etiology. No prior cardiac work-up. Unknown chronicity. Continues to have mild fluid overload on exam. CXR showed persistent bilateral pleural effusions along with some patchy airspace opacities which may relate to atelectasis or infiltrates. There is also some persistent pulmonary vascular congestion and likely interstitial edema. Mild troponin at 0.04, 0.05, 0.04 likely demand ischemia in the setting of respiratory failure. Continue IV lasix untill near euvolemia. Continue bb. Add aceI. Increase bb and aceI to maximal medical therapy as tolerated. Strict I&O and daily weights. Low sodium diet. LHC recommended to evaluate for ischemic cause. Discussed with patient indication, risk and benefit. At this point patient states she is not willing to undergo LHC. More concerning she states she will not take her medications. After further discussion she says she will probably take medications. Recommend continuing medical management. Continue IV diuresis until euvolemic. . Discussed with Dr. Conrad, recommend out-pt f/u in 1-2 weeks to assess compliance with medications prior to LHC. Check repeat echocardiogram in one week to re-evaluate pericardial effusion. Out-pt f/u will be coordinated. Please call with questions. Cardiology will sign off. Qualifiers: Cardiomyopathy type: unspecified Qualified Code(s): I42.9 - Cardiomyopathy, unspecified (2) Acute hypoxemic respiratory failure Current Visit: Yes Status: Acute Acute respiratory failure in the setting of PNA, COPD, and acute CHF. Initially intubated and now on NC. Pulmonology following. IV lasix for diuresis. (3) Pericardial effusion without cardiac tamponade Current Visit: Yes Status: Acute Pericardial effusion, no tamponade, unclear etiology, will continue to monitor. Check re-peat TTE in 2 weeks. Discussion w patient/family: The assessment and plan as outlined above was discussed with the patient and/or family members who expressed understanding and agreement. All questions were answered. Thank you for involving us in the care of your patient. Please call with any questions. Subjective Principal diagnosis: Acute hypoxic hypercarbic respiratory failure secondary to acute systolic h Interval history: Ms. Navarro is currently on oxygen via nasal canula sitting in bedside chair. States she did not sleep all night. She was refusing her medication during my visit. States she will not take medications when she goes home. After further discussion and education she states she will probably take medication. Denies chest pain. States she had severe chest pain several months ago and was evaluated at [facility] with no concerning findings. Objective Vital Signs, Last 4 Hours Temp Pulse Resp BP Pulse Ox 09/18/18 12:59 98.8 F 09/18/18 11:19 20 92 09/18/18 10:00 97 20 140/105 92 General: Conversant, Other (appears anxious) HEENT: Atraumatic, Normocephaly, Mucus Membranes Moist Neck: No JVD, Normal carotid pulses Cardiac: Reg Rate and Rhythm, Normal S1 and S2, No Murmur, Other (sinus tachycardia on telemetry) Lungs: Other (rhonci scatterted throughout) Neuro: Alert and responsive, No focal deficits noted Abdomen: Soft, Non-Tender Skin: No rashes noted on visualized skin Musculoskeletal: No Chest Wall Tenderness Extremities: Other (1+ edema in BLE extremities. ) Results 09/18/18 04:45 09/18/18 04:45 Lab Results 09/18/18 09/18/18 04:45 04:45 WBC 17.3 H D Hgb 11.5 Hct 35.1 L Plt Count 203 Sodium 137 Potassium 3.5 Chloride 107 Carbon Dioxide 23 BUN 29 H Creatinine 0.95 Glucose 140 H Calcium 8.9 - Imaging and Cardiology Echo: report reviewed - EKG Interpretation EKG results cardiology: personally reviewed Consult Discharge Plan - Plan Referrals: NONE,PCP [Primary Care Provider] -
[2018-09-18] MEDS ORDERED: Metoprolol XL (24 HR) Succ 25 MG TAB.ER.24H PO ONE (14:10)
[2018-09-18] MEDS ORDERED: *HR* Midazolam HCl 2 MG/2 ML VIAL IVP PRN (15:09)
[2018-09-18] MEDS ORDERED: Naloxone 0.4 MG/ML INJ IVP PRN (15:09)
[2018-09-18] MEDS ORDERED: Dextrose Gel 15 GM/37.5 ML TUBE PO PRN ×2 (15:09)
[2018-09-18] MEDS ORDERED: Acetaminophen 325 MG TABLET PO PRN (15:09)
[2018-09-18] MEDS ORDERED: *HR* Dextrose 50 % in Water (Syg) 50 ML SYRINGE IVP PRN (15:09)
[2018-09-18] MEDS ORDERED: D5% in Water 1,000 ML IVC PRN (15:09)
[2018-09-18] MEDS ORDERED: Insulin LISPRO 300 UNITS/3 ML VIAL SQ SCH (21:00)
[2018-09-19] MEDS: *HR* Heparin 5,000 UNIT/ML VIAL SQ SCH ×2 (04:36→18:10)
[2018-09-19] MEDS ORDERED: *HR* Metoprolol 5 MG/5 ML VIAL IVP ONE (05:06)
[2018-09-19] MEDS: Budesonide/Formoterol 160/4.5 1 PUFF INH IH SCH (08:05)
[2018-09-19] MEDS ORDERED: Metoprolol XL (24 HR) Succ 25 MG TAB.ER.24H PO SCH ×3 (09:00)
[2018-09-19] MEDS ORDERED: Aspirin 81 MG TAB.CHEW PO SCH (09:00)
[2018-09-19] MEDS ORDERED: levoFLOXacin 750 MG TABLET PO SCH ×2 (09:00)
[2018-09-19] MEDS ORDERED: Furosemide 20 MG TABLET PO SCH ×2 (09:00)
[2018-09-19] MEDS: MethylPREDNISolone 40 MG/ML VIAL IVP SCH (09:10)
[2018-09-19] MEDS: Insulin LISPRO 300 UNITS/3 ML VIAL SQ SCH ×3 (09:13→17:22)
--- NOTE | 2018-09-19 10:36 | Discharge Summary ---
- NOTES TO OUTPATIENT PROVIDER Notes to Outpatient Provider: Patient with history of COPD was admitted for acute hypoxic respiratory failure secondary to new combined systolic/diastolic heart failure +/- COPD exacerbation and pneumonia. Required intubation initially. Clinically improved with diuretics, steroids, and abx. She was recom mended to get LHC done which she refused. Will be discharged home with Cardiology follow up in 1-2 weeks as well as repeat Echo in 1 week to re- evaluate pericardial effusion. She is also to follow up with Pulmonology as outpatient. Orders not resulted at time of discharge: Pending orders 09/16/18 01:52 Culture,Sputum with Gram Stain [RM] Stat Date of Encounter: 09/19/18 Time of Encounter: 08:00 - Discharge Diagnosis (1) Acute hypoxemic respiratory failure Priority: Primary Status: Acute (2) Pneumonia Priority: Secondary Status: Acute Qualifiers: Pneumonia type: due to unspecified organism Laterality: bilateral Lung location: lower lobe of lung Qualified Code(s): J18.1 - Lobar pneumonia, unspecified organism (3) Sepsis Priority: Secondary Status: Resolved Qualifiers: Sepsis type: sepsis due to unspecified organism Qualified Code(s): A41.9 - Sepsis, unspecified organism (4) Elevated troponin Priority: Secondary Status: Acute (5) DVT prophylaxis Priority: Secondary Status: Acute Hospital course: Ms. Navarro is a 58 year old female with history of COPD who was admitted for acute hypoxic respiratory failure secondary to new combined systolic/diastolic heart failure +/- COPD exacerbation and pneumonia. Required intubation initially. Clinically improved with diuretics, steroids, and abx. She was recommended to get LHC done which she refused. She will be discharged on a total of 7 days of antibiotics, tapering course of steroids, oral diuretic, and inhaler. She will need outpatient follow up with Cardiology follow up in 1-2 weeks as well as repeat Echo in 1 week to re-evaluate pericardial effusion. She is also to follow up with Pulmonology as outpatient. Discharge discussed with: patient, nurse, social work, case management - Time Spent with Patient Total time spent providing and/or coordinating discharge services: 33 mins - Discharge Medications Prescriptions: New Aspirin 81 mg PO DAILY #30 tab.chew Furosemide [Lasix] 20 mg PO DAILY #30 tablet levoFLOXacin [Levaquin] 750 mg PO Q24H #3 tablet Lisinopril [Zestril] 2.5 mg PO DAILY #30 tablet Metoprolol XL (24 HR) Succ [Toprol Xl] 50 mg PO DAILY #60 tab.er.24h predniSONE [PredniSONE] 40 mg PO DAILY #9 tablet Continue Fluticasone/Vilanterol [Breo Ellipta 100-25 Mcg INH] 1 puff IH DAILY Fluticasone/Salmeterol [Airduo Respiclick 113-14 Mcg] 1 puff IH BID Albuterol Sulfate [Ventolin Hfa] 2 puff IH Q6H PRN PRN Reason: Shortness Of Breath Home Medications: Albuterol Sulfate [Ventolin Hfa] 2 puff IH Q6H PRN 09/16/18 [History] Fluticasone/Salmeterol [Airduo Respiclick 113-14 Mcg] 1 puff IH BID 09/16/18 [History] Fluticasone/Vilanterol [Breo Ellipta 100-25 Mcg INH] 1 puff IH DAILY 09/16/18 [History] Aspirin 81 mg PO DAILY #30 tab.chew 09/19/18 [Rx] Furosemide [Lasix] 20 mg PO DAILY #30 tablet 09/19/18 [Rx] Lisinopril [Zestril] 2.5 mg PO DAILY #30 tablet 09/19/18 [Rx] Metoprolol XL (24 HR) Succ [Toprol Xl] 50 mg PO DAILY #60 tab.er.24h 09/19/18 [Rx] levoFLOXacin [Levaquin] 750 mg PO Q24H #3 tablet 09/19/18 [Rx] predniSONE [PredniSONE] 40 mg PO DAILY #9 tablet 09/19/18 [Rx] Allergies/Adverse Reactions: Allergy/AdvReac Type Severity Reaction Status Date / Time No Known Allergies Allergy Verified 09/16/18 11:25 Date of admission: 09/16/18 00:49 Primary care physician: PCP NONE Consults: 09/16/18 01:52 Consult to Pulmonology [CONS] Routine Consulting Provider: [facility] Reason for Consult: ICU management Call Completed: No 09/16/18 10:41 Consult to Cardiology [CONS] Routine Comment: Consulting Provider: [facility] [place] Reason for Consult: chest pain, elevated troponin, pending ECHO Time Notified: 10:41 Call Completed: Yes 09/17/18 09:28 Consult to Nurse Navigator [CONS] Routine Comment: COPD - Constitutional Vitals: Temp Pulse Resp BP Pulse Ox 98.7 F 103 18 156/103 98 09/19/18 06:59 09/19/18 06:59 09/19/18 08:07 09/19/18 06:59 09/19/18 08:07 Exam: General: Alert and oriented, not in acute distress. Cardiovascular:Normal S1 & S2, No JVD. Pulse regular Lungs: min bibasilar rales. No significant LE edema Abdomen:Soft, non-tender, no rigidity. Extremities:No deformity or swelling Neurological: Non-focal Psych: Appropriate - Patient Status Disposition: Home, Self-Care Condition: Fair Functional capacity at discharge: independent ambulation Overall status at discharge: patient is progressing back to baseline - Discharge Instructions Instructions: Acute Respiratory Distress Syndrome (DC), Chronic Obstructive Pulmonary Disease (DC), Pneumonia (DC), Sepsis (DC) Follow Up With: NONE,PCP [Primary Care Provider] - Emilia Conrad DO [Partnered Physician] - Qasim Renee MD [Partnered Physician] - Additional Instructions: Complete abx and steroid as prescribed daily inhaler for COPD and follow up with pulmonary as outpatient Echocardiogram in 1 week, cardiology follow up in 1-2 weeks to readdress the possibility of LHC which she declined inpatient. - Diet and Activity Activity: resume usual activities as tolerated Diet: low salt diet
[2018-09-19] MEDS ORDERED: *HR* LORazepam 2 MG/ML VIAL IVP ONE (16:34)
[2018-09-19] MEDS ORDERED: hydrOXYzine pamoate 25 MG CAPSULE PO ONE (17:10)
--- NOTE | 2018-09-19 17:40 | Electrocardiograph Report ---
[place] [id number] Test Date: 2018-09-16 Pat Name: Chavez Navarro Department: 109 Room: 2A32 Gender: F [place] Operator: : 1960 Requested By: Ian Oliver Order Number: [id number] Reading MD: Emilia Conrad Measurements Intervals [place] Rate: 82 P: 73 OR: 139 QRS: 60 QRSD: 106 T: 216 QT: 538 QTc: 576 Interpretive Statements SINUS RHYTHM WITH OCCASIONAL VENTRICULAR PREMATURE COMPLEXES WITH OCCASIONAL SUPRAVENTRICULAR PREMATURE COMPLEXES MODERATE T-WAVE ABNORMALITY, CONSIDER ANTEROLATERAL ISCHEMIA MODERATE T-WAVE ABNORMALITY, CONSIDER INFERIOR ISCHEMIA Electronically Signed On 09-19-2018 17:38:01 EDT by Emilia Conrad
[2018-09-19] MEDS ORDERED: MethylPREDNISolone 40 MG/ML VIAL IVP SCH (18:00)
[2018-09-19 18:44] VITALS: BP 139/98
== END 2018-09-19 19:10 | disposition home or self-care (01) | DRG 720 ==
LOC: ICNU 09-16 00:49 → SUATTDRO 09-16 00:49 → 2ANU 09-18 17:00
PROVIDERS: ADMIT Family Medicine; ATTEND Internal Medicine